=== PATIENT | female | born 1980 | race Caucasian/White ===

== ENCOUNTER 2019-08-27 20:19 | Emergency (ER) | payer OTHER, MEDICAID ==
[~2019-08-27] VITALS: Ht 160 cm; Wt 82.6 kg
[2019-08-27] MEDS ORDERED: NAPROSYN500 MG PO (22:08)
[2019-08-27] MEDS ORDERED: TYLENOL WITH CO1 TA1 PO (22:18)
[2019-08-27 22:46] VITALS: BP 121/75
== END 2019-08-27 22:47 | disposition home or self-care (01) ==
LOC: M.ERS 20:19
DX: M25.572 Pain in left ankle and joints of left foot (principal); Z98.51 Tubal ligation status

== ENCOUNTER 2019-09-11 01:08 | Emergency (ER) | payer OTHER, MEDICAID ==
[~2019-09-11] VITALS: Ht 160 cm; Wt 82.6 kg
[~2019-09-11 01:08] MED LIST: NAPROSYN500 MG PO; TYLENOL WITH CO1 TA1 PO
[2019-09-11] MEDS ORDERED: NORTRIPTYLINE H10 M1 PO (01:35)
[2019-09-11 01:38] LABS: ABSOLUTE BASOPHILS 0.2 thou/uL (0.0-0.2); ABSOLUTE EOSINOPHILS 0.2 thou/uL (0.0-0.7); ABSOLUTE LYMPHOCYTES 3.7 thou/uL (0.8-5.3); ABSOLUTE MONOCYTES 0.8 thou/uL (0.0-1.2); ABSOLUTE NEUTROPHILS 9.4 thou/uL (1.6-8.1); BASOPHILS 1.3 %; EOSINOPHILS 1.5 %; HEMATOCRIT 40.2 % (37.0-47.0); HEMOGLOBIN 13.5 gm/dL (12.0-15.0); LYMPHOCYTES 25.7 %; MCH 27.7 pg (26.0-34.0); MCHC 33.6 g/dL (28.0-37.0); MCV 82.6 fL (80.0-100.0); MONOCYTES 5.7 %; MPV 9.7 fl. (7.2-11.1); NUCLEATED RBCS 0 /100WBC; PLATELET COUNT* 347 thou/uL (150-400); POLYS 65.8 %; RBC 4.87 mil/uL (4.20-5.00); RDW-CV 13.6 % (10.5-14.5); WBC 14.3 thou/uL (4.0-11.0)
[2019-09-11 01:42] LABS: CALCIUM 9.2 mg/dL (8.5-10.1); POTASSIUM 3.5 mmol/L (3.5-5.1)
[2019-09-11 01:57] LABS: ALBUMIN 4.3 g/dL (3.4-5.0); TOTAL BILIRUBIN 0.2 mg/dL (<0.1-1.0); TOTAL PROTEIN 8.1 g/dL (6.4-8.2)
[2019-09-11] MEDS ORDERED: NORCO 5-325 TA1 EAC2 PO (03:40)
[2019-09-11 03:48] VITALS: BP 108/66
--- NOTE | 2019-09-11 13:48 | EKG ---
[place] [address] ELECTROCARDIOGRAM REPORT Name: MAGDIALVARADO Aislinn Room: [facility]#: [id number] Admission: 09/11/19 Attend Phys: Discharge: 09/11/19 Date of : 76 Date of Service: 09/11/19114 Report #: [id number] THIS REPORT FOR: //name// 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
== END 2019-09-11 03:53 | disposition home or self-care (01) ==
LOC: M.ERS 01:08
PROVIDERS: Emergency Medicine Emergency Medical Services
DX: R07.89 Other chest pain (principal); Z98.51 Tubal ligation status

== ENCOUNTER 2019-11-25 00:07 | Emergency (ER) | payer OTHER, MEDICAID ==
[~2019-11-25] VITALS: Ht 160 cm; Wt 82.0 kg
[~2019-11-25 00:07] MED LIST changes: +NORCO 5-325 TA1 EAC2 PO; +NORTRIPTYLINE H10 M1 PO
[2019-11-25] MEDS ORDERED: NAPROXEN500 MG PO (00:26)
[2019-11-25 02:12] LABS: ABSOLUTE BASOPHILS 0.1 thou/uL (0.0-0.2); ABSOLUTE EOSINOPHILS 0.2 thou/uL (0.0-0.7); ABSOLUTE LYMPHOCYTES 3.6 thou/uL (0.8-5.3); ABSOLUTE MONOCYTES 0.7 thou/uL (0.0-1.2); ABSOLUTE NEUTROPHILS 6.6 thou/uL (1.6-8.1); EOSINOPHILS 2.1 %; HEMOGLOBIN 12.6 gm/dL (12.0-15.0); MCH 26.9 pg (26.0-34.0); MCHC 33.1 g/dL (28.0-37.0); MCV 81.2 fL (80.0-100.0); MONOCYTES 6.2 %; MPV 9.2 fl. (7.2-11.1); NUCLEATED RBCS 0 /100WBC; PLATELET COUNT* 322 thou/uL (150-400); POLYS 58.7 %; RBC 4.68 mil/uL (4.20-5.00); RDW-CV 13.7 % (10.5-14.5); WBC 11.3 thou/uL (4.0-11.0)
[2019-11-25 02:15] LABS: CALCIUM 8.6 mg/dL (8.5-10.1); CREATININE 0.7 mg/dL (0.6-1.3)
[2019-11-25 02:20] LABS: ALBUMIN 3.7 g/dL (3.4-5.0); PROTIME 9.9 Seconds (9.20-11.50); TOTAL BILIRUBIN 0.2 mg/dL (<0.1-1.0); TOTAL PROTEIN 7.1 g/dL (6.4-8.2)
[2019-11-25] MEDS ORDERED: MEDROLDOSEPACK PO (02:49)
[2019-11-25] MEDS ORDERED: TORADOL 10 MG T10 MG PO (02:49)
[2019-11-25 02:55] VITALS: BP 103/74
--- NOTE | 2019-11-25 13:39 | EKG ---
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: : 1980 Requested By: Ayana Maloney Order Number: [id number] Reading MD: Tenzin Horta Measurements Intervals [place] Rate: 85 P: 57 RI: 166 QRS: -1 QRSD: 86 T: 13 QT: 348 QTc: 414 Interpretive Statements Sinus rhythm Borderline T abnormalities, inferior leads Baseline wander in lead(s) II,III,aVR,aVL,aVF Compared to ECG 09/11/2019 01:15:39 no change Electronically Signed On 11-25-2019 13:39:08 CDT by Tenzin Horta [email or web address] <ELECTRONICALLY SIGNED> By: Tenzin Horta MD, FACC 11/25/19 1339 0014 0014 Tenzin Horta MD, [facility] /EPI
== END 2019-11-25 02:55 | disposition home or self-care (01) ==
LOC: M.ERS 00:07
PROVIDERS: Personal Emergency Response Attendant
DX: R07.89 Other chest pain (principal); R10.13 Epigastric pain; Z98.51 Tubal ligation status

== ENCOUNTER 2020-01-20 19:49 | Emergency (ER) | payer OTHER, MEDICAID ==
[~2020-01-20] VITALS: Ht 157.5 cm; Wt 84.8 kg
[~2020-01-20 19:49] MED LIST changes: +MEDROLDOSEPACK PO; +NAPROXEN500 MG PO; +TORADOL 10 MG T10 MG PO
[2020-01-20 21:36] LABS: URINE BILIRUBIN NEGATIVE (Negative); URINE BLOOD NEGATIVE (Negative); URINE CLARITY CLEAR; URINE COLOR YELLOW; URINE GLUCOSE-RANDOM NEGATIVE (Negative); URINE KETONES NEGATIVE (Negative); URINE LEUKOCYTES-REFLEX NEGATIVE (Negative); URINE NITRITE-REFLEX NEGATIVE (Negative); URINE PROTEIN NEGATIVE (Negative); URINE SPECIFIC GRAVITY 1.015 (1.005-1.030); URINE UROBILINOGEN 0.2 E.U./dl (0.2-1.0)
[2020-01-20 21:46] LABS: AMP/METHAMP Negative (Negative); BARBITURATES Negative (Negative); BENZODIAZEPINES Negative (Negative); COCAINE Negative (Negative); METHADONE Negative (Negative); OPIATES Negative (Negative); PCP Negative (Negative); THC Negative (Negative)
[2020-01-20 21:50] LABS: ABSOLUTE BASOPHILS 0.1 thou/uL (0.0-0.2); ABSOLUTE EOSINOPHILS 0.3 thou/uL (0.0-0.7); ABSOLUTE LYMPHOCYTES 3.2 thou/uL (0.8-5.3); ABSOLUTE MONOCYTES 0.8 thou/uL (0.0-1.2); ABSOLUTE NEUTROPHILS 8.9 thou/uL (1.6-8.1); BASOPHILS 1.1 %; EOSINOPHILS 1.9 %; HEMATOCRIT 37.5 % (37.0-47.0); HEMOGLOBIN 12.4 gm/dL (12.0-15.0); LYMPHOCYTES 24.1 %; MCH 27.1 pg (26.0-34.0); MCV 82.2 fL (80.0-100.0); MONOCYTES 5.8 %; MPV 8.6 fl. (7.2-11.1); NUCLEATED RBCS 0 /100WBC; PLATELET COUNT* 332 thou/uL (150-400); POLYS 67.1 %; RBC 4.56 mil/uL (4.20-5.00); RDW-CV 14.1 % (10.5-14.5); WBC 13.2 thou/uL (4.0-11.0)
[2020-01-20 22:01] LABS: APTT 25.4 Seconds (25.0-31.3); CALCIUM 8.2 mg/dL (8.5-10.1); CREATININE 0.8 mg/dL (0.6-1.3); INR 0.9; POTASSIUM 3.9 mmol/L (3.5-5.1); PROTIME 10.1 Seconds (9.20-11.50)
[2020-01-20 22:12] LABS: ALBUMIN 3.7 g/dL (3.4-5.0); MAGNESIUM 2.1 mg/dL (1.8-2.4); TOTAL BILIRUBIN 0.2 mg/dL (<0.1-1.0); TOTAL PROTEIN 7.3 g/dL (6.4-8.2)
[2020-01-20 22:37] LABS: INFLUENZA A ANTIGEN Negative (Negative); INFLUENZA B ANTIGEN Negative (Negative)
[2020-01-20] MEDS ORDERED: NORCO 5-325 TA1 EAC2 PO (22:40)
[2020-01-20] MEDS ORDERED: MEDROLDOSEPACK PO (22:40)
[2020-01-20 22:53] VITALS: BP 122/73
--- NOTE | 2020-01-21 12:23 | EKG ---
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1980 Requested By: Apple Goodwin Order Number: [id number] MD: Austin Adan Measurements Intervals [place] Rate: 87 P: 36 RI: 146 QRS: 3 QRSD: 80 T: 28 QT: 355 QTc: 427 Interpretive Statements Sinus rhythm Low voltage, precordial leads Compared to ECG 11/25/2019 00:14:27 Low QRS voltage now present T-wave abnormality no longer present Electronically Signed On 01-21-2020 12:23:29 DIRECTOR OF SUPPLY CHAIN by Austin Adan [email or web address] <ELECTRONICALLY SIGNED> By: Austin Adan MD, FAC 01/21/20 1223 55 55 Austin Adan MD, [facility] /EPI
== END 2020-01-20 22:53 | disposition home or self-care (01) ==
LOC: M.ERS 19:49
PROVIDERS: Nurse Practitioner Family
DX: R07.89 Other chest pain (principal); M54.6 Pain in thoracic spine; Z20.828 Contact with and (suspected) exposure to other viral communicable diseases; E66.9 Obesity, unspecified; F17.210 Nicotine dependence, cigarettes, uncomplicated; Z98.51 Tubal ligation status; Z79.899 Other long term (current) drug therapy; Z68.34 Body mass index [BMI] 34.0-34.9, adult

== ENCOUNTER 2020-11-09 18:27 | Emergency (ER) | payer OTHER, MEDICAID ==
[~2020-11-09] VITALS: Ht 157.5 cm; Wt 86.2 kg
[2020-11-09] MEDS ORDERED: MOBIC7.5 M1 PO (18:45)
[2020-11-09] MEDS ORDERED: MEDROLDOSEPACK PO (21:27)
[2020-11-09] MEDS ORDERED: LIDODERM1 EACH TOP (21:27)
[2020-11-09 21:59] VITALS: BP 118/72
== END 2020-11-09 21:59 | disposition home or self-care (01) ==
LOC: M.ERS 18:27
DX: M25.512 Pain in left shoulder (principal); L40.9 Psoriasis, unspecified; F17.210 Nicotine dependence, cigarettes, uncomplicated; Z98.51 Tubal ligation status; Z79.899 Other long term (current) drug therapy

== ENCOUNTER 2020-12-13 20:24 | Emergency (ER) | payer OTHER, MEDICAID ==
[~2020-12-13] VITALS: Ht 157.5 cm; Wt 86.2 kg
[~2020-12-13 20:24] MED LIST changes: +LIDODERM1 EACH TOP; +MOBIC7.5 M1 PO
[2020-12-13 20:38] VITALS: BP 118/74
[2020-12-13] MEDS ORDERED: CEPHALEXIN500 MG PO (20:49)
== END 2020-12-13 20:53 | disposition home or self-care (01) ==
LOC: M.ERS 20:24
DX: R59.1 Generalized enlarged lymph nodes (principal); F17.210 Nicotine dependence, cigarettes, uncomplicated; Z98.51 Tubal ligation status; Z79.899 Other long term (current) drug therapy

== ENCOUNTER 2021-01-03 20:02 | Emergency (ER) | payer OTHER, MEDICAID ==
[~2021-01-03] VITALS: Ht 157.5 cm; Wt 88.0 kg
[~2021-01-03 20:02] MED LIST changes: +CEPHALEXIN500 MG PO
[2021-01-03 20:17] VITALS: BP 105/72
[2021-01-03] MEDS ORDERED: GABAPENTIN100 MG PO (20:20)
[2021-01-03 20:48] LABS: URINE BILIRUBIN NEGATIVE (Negative); URINE BLOOD NEGATIVE (Negative); URINE CLARITY CLEAR; URINE COLOR YELLOW; URINE GLUCOSE-RANDOM NEGATIVE (Negative); URINE KETONES NEGATIVE (Negative); URINE LEUKOCYTES-REFLEX NEGATIVE (Negative); URINE NITRITE-REFLEX NEGATIVE (Negative); URINE PROTEIN NEGATIVE (Negative); URINE UROBILINOGEN 0.2 E.U./dl (0.2-1.0)
[2021-01-03] MEDS ORDERED: DOXYCYCLINE 10100 MG PO (21:05)
[2021-01-03] MEDS ORDERED: HYDROCODON-ACE1 EAC8 PO (21:06)
== END 2021-01-03 21:12 | disposition home or self-care (01) ==
LOC: M.ERS 20:02
PROVIDERS: Emergency Medicine
DX: N73.9 Female pelvic inflammatory disease, unspecified (principal); F17.210 Nicotine dependence, cigarettes, uncomplicated; Z98.51 Tubal ligation status; Z79.899 Other long term (current) drug therapy

== ENCOUNTER 2021-03-22 20:50 | Emergency (ER) | payer OTHER, MEDICAID ==
[~2021-03-22] VITALS: Ht 157.5 cm; Wt 86.2 kg
[~2021-03-22 20:50] MED LIST changes: +DOXYCYCLINE 10100 MG PO; +GABAPENTIN100 MG PO; +HYDROCODON-ACE1 EAC8 PO
[2021-03-22 22:25] LABS: ABSOLUTE BASOPHILS 0.1 thou/uL (0.0-0.2); ABSOLUTE EOSINOPHILS 0.3 thou/uL (0.0-0.7); ABSOLUTE LYMPHOCYTES 2.9 thou/uL (0.8-5.3); ABSOLUTE MONOCYTES 0.5 thou/uL (0.0-1.2); ABSOLUTE NEUTROPHILS 6.8 thou/uL (1.6-8.1); BASOPHILS 0.6 %; EOSINOPHILS 2.8 %; HEMOGLOBIN 13.3 gm/dL (12.0-15.0); LYMPHOCYTES 27.2 %; MCH 26.8 pg (26.0-34.0); MCHC 33.2 g/dL (28.0-37.0); MCV 80.7 fL (80.0-100.0); MONOCYTES 5.2 %; NUCLEATED RBCS 0 /100WBC; PLATELET COUNT* 325 thou/uL (150-400); POLYS 64.2 %; RBC 4.96 mil/uL (4.20-5.00); RDW-CV 13.7 % (10.5-14.5); WBC 10.6 thou/uL (4.0-11.0)
[2021-03-22 22:34] LABS: CALCIUM 8.5 mg/dL (8.5-10.1); CREATININE 0.7 mg/dL (0.6-1.3); POTASSIUM 4.1 mmol/L (3.5-5.1)
[2021-03-22 22:38] LABS: ALBUMIN 3.7 g/dL (3.4-5.0); TOTAL BILIRUBIN 0.1 mg/dL (<0.1-1.0); TOTAL PROTEIN 7.3 g/dL (6.4-8.2)
[2021-03-22 23:23] VITALS: BP 125/83
--- NOTE | 2021-03-23 11:34 | EKG ---
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 : 1980 Requested By: Merline Meenndez Order Number: [id number] MD: Tenzin Horta Measurements Intervals [place] Rate: 92 P: 22 IN: 151 QRS: 2 QRSD: 85 T: 18 QT: 345 QTc: 427 Interpretive Statements Sinus rhythm Baseline wander in lead(s) V6 Compared to ECG 01/20/2020 19:56:44 No significant changes Electronically Signed On 03-23-2021 11:34:36 CVT RN by Tenzin oHrta [email or web address] <ELECTRONICALLY SIGNED> By: Tenzin Horta MD, [facility] 03/23/21 1134 02 02 Tenzin Horta MD, [facility] /EPI
== END 2021-03-22 23:24 | disposition home or self-care (01) ==
LOC: M.ERS 20:50
PROVIDERS: Emergency Medicine
DX: U07.1 COVID-19 (principal); F17.210 Nicotine dependence, cigarettes, uncomplicated; Z79.899 Other long term (current) drug therapy